=== PATIENT | male | born 1965 | race Two or more races ===

== ENCOUNTER 2016-12-13 10:12 | Inpatient (IN) | payer OTHER ==
[2016-12-13 10:24] VITALS: BMI 26.4
--- NOTE | 2016-12-13 13:36 | HP ---
CIWA Score - CIWA Score Nausea/Vomitin Muscle Tremors: 4-Moderate,w/Arms Extend Anxiety: 4-Mod. Anxious/Guarded Agitation: 3 Paroxysmal Sweats: 3 Orientation: 0-Oriented Tacttile Disturbances: 2-Mild Itch/Numbness/Burn Auditory Disturbances: 3-Moderate Harsh/Frighten Visual Disturbances: 0-None Headache: 2-Mild CIWA-Ar Total Score: 24 Admission ROS S - HPI Chief Complaint: "I am here to Detox and stop the drinking." Allergies/Adverse Reactions: Allergies Allergy/AdvReac Type Severity Reaction Status Date / Time No Known Allergies Allergy Verified 12/13/16 12:00 History of Present Illness: Pt. is a 51 YO male here to Detox from Alcohol. This is pt.'s first Detox admission at [facility]. Exam Limitations: No Limitations - Ebola screening Have you traveled outside of the country in the last 21 days: No Have you had contact with anyone from an Ebola affected area: No Have you been sick,other than usual withdrawal symptoms: No Do you have a fever: No - Review of Systems Constitutional: Chills, Diaphoresis, Fever, Loss of Appetite, Malaise, Night Sweats, Changes in sleep EENT: reports: Hearing Loss (Bilateral.), Other (Dentures for upper and lower teeth. Pt. only brought upper denture with him.) Respiratory: reports: SOB with Exertion (And when smoking.) Cardiac: reports: No Symptoms Reported GI: reports: Diarrhea, Nausea, Poor Appetite, Vomiting, Indigestion, Abdominal cramping : reports: No Symptoms Reported Musculoskeletal: reports: Back Pain, Joint Pain, Neck Pain, Joint Stiffness Integumentary: reports: Dryness, Pruritus (On back.) Neuro: reports: Headache, Seizure (Last One: 2002 (Alcohol-related).), Tremors Endocrine: reports: No Symptoms Reported Hematology: reports: No Symptoms Reported Psychiatric: reports: Judgement Intact, Mood/Affect Appropiate, Orientated x3, Anxious, Depressed (On meds.) Other Systems: Reviewed and Negative Patient History - Patient Medical History Hx Anemia: No Hx Asthma: Yes (On meds.) Hx Chronic Obstructive Pulmonary Disease (COPD): No Hx Cancer: No Hx Cardiac Disorders: No Hx Congestive Heart Failure: No Hx Hypertension: No Hx Hypercholesterolemia: No Hx Pacemaker: No HX Cerebrovascular Accident: Yes (Age 26, no apparent residual effect.) Hx Seizures: Yes (Last One: 2002 (Alcohol-related).) Hx Dementia: No Hx Diabetes: No Hx Gastrointestinal Disorders: No Hx Liver Disease: No Hx Genitourinary Disorders: No Hx Sexually Transmitted Disorders: No Hx Renal Disease (ESRD): No Hx Thyroid Disease: No Hx Human Immunodeficiency Virus (HIV): No (Last tested: 07/2016: NEGATIVE.) Hx Hepatitis C: No (Negative, Cannot rmember when last tested.) Hx Depression: Yes (On meds.) Hx Suicide Attempt: Yes (Several in past. PATIENT DENIES CURRENT SI / HI.) Hx Bipolar Disorder: No Hx Schizophrenia: Yes (On meds.) - Patient Surgical History Past Surgical History: No Hx Neurologic Surgery: No Hx Cataract Extraction: No Hx Cardiac Surgery: No Hx Lung Surgery: No Hx Breast Surgery: No Hx Breast Biopsy: No Hx Abdominal Surgery: No Hx Appendectomy: No Hx Cholecystectomy: No Hx Genitourinary Surgery: No Hx Orthopedic Surgery: No Anesthesia Reaction: No - PPD History Previous Implant?: Yes Documented Results: Negative w/o proof Implanted On Prior [facility] Admission?: No PPD to be Administered?: Yes - Reproductive History Patient is a Female of Child Bearing Age (11 -55 yrs old): No (PATIENT IS MALE.) - Smoking Cessation Smoking history: Current every day smoker Have you smoked in the past 12 months: Yes Aproximately how many cigarettes per day: 20 Cigars Per Day: 0 Hx Chewing Tobacco Use: No Initiated information on smoking cessation: Yes 'Breaking Loose' booklet given: 12/13/16 (GIVEN ON UNIT.) - Substance & Tx. History Hx Alcohol Use: Yes Hx Substance Use: Yes Substance Use Type: Alcohol, Tranquilizers Hx Substance Use Treatment: Yes (Detox at [facility] in past, Rehab at [facility].) - Substances Abused Alcohol Route: Oral Frequency: Daily Amount used: harshil 4 pints, beer 6 of 24 oz Age of first use: 10 Date of Last Use: 12/11/16 Benzodiazepine (Klonopin) Route: Oral Frequency: Daily Amount used: 2 MG (Prescribed) Age of first use: 48 Date of Last Use: 12/09/16 Family Disease History - Family Disease History Family Disease History: Diabetes: Grandparent, CA: Mother (Colon, Alive.), Other : Father (Schizophrenia, Alzheimer's, .), Sister (HIV.) Admission Physical Exam [facility] - Vital Signs Vital Signs: Vital Signs - 24 hr 12/13/16 10:15 Temperature 97.1 F L Pulse Rate 87 Respiratory 16 Rate Blood Pressure 112/73 - Physical General Appearance: Yes: No Apparent Distress, Nourished, Appropriately Dressed , Tremorous HEENTM: Yes: Hearing grossly Normal, Normocephalic, Normal Voice, JULISSA, Pharynx Normal Respiratory: Yes: Chest Non-Tender, No Respiratory Distress, Wheezing Neck: Yes: No masses,lesions,Nodules, Supple, Trachea in good position Breast: Yes: Breast Exam Deferred Cardiology: Yes: Regular Rhythm, Regular Rate, S1, S2 Abdominal: Yes: Normal Bowel Sounds, Non Tender, Soft, Protuberent Genitourinary: Yes: Within Normal Limits Back: Yes: Decreased Range of Motion Musculoskeletal: Yes: Gait Steady, Back pain Extremities: Yes: Tremors Neurological: Yes: Fully Oriented, Alert, Normal Mood/Affect, Normal Response Integumentary: Yes: Normal Color, Dry, Warm Lymphatic: Yes: Within Normal Limits - Diagnostic (1) Alcohol dependence with uncomplicated withdrawal Current Visit: Yes Status: Acute (2) Sedative, hypnotic or anxiolytic dependence with withdrawal, uncomplicated Current Visit: Yes Status: Acute (3) Nicotine dependence Current Visit: Yes Status: Chronic Qualifiers: Nicotine product type: cigarettes Substance use status: uncomplicated Qualified Code(s): F17.210 - Nicotine dependence, cigarettes, uncomplicated (4) Asthma Current Visit: Yes Status: Chronic Qualifiers: Asthma severity: mild persistent Asthma complication type: uncomplicated Qualified Code(s): J45.30 - Mild persistent asthma, uncomplicated (5) Bipolar disorder Current Visit: Yes Status: Chronic Qualifiers: Active/Remission status: remission status unspecified Qualified Code (s): F31.9 - Bipolar disorder, unspecified (6) Schizophrenia Current Visit: Yes Status: Chronic Qualifiers: Schizophrenia type: unspecified Qualified Code(s): F20.9 - Schizophrenia, unspecified Cleared for Admission [facility] - Detox or Rehab S Level of Care: Medically Managed Detox Regimen/Protocol: Librium S Breath Alcohol Content Breath Alcohol Content: 0 Urine Drug Screen - Results Drug Screen Negative: No Urine Drug Screen Results: BZO-Benzodiazepines
[2016-12-13] MEDS ORDERED: ACETAMINOPHEN 325 MG TABLET (FP) PO PRN (14:18)
[2016-12-13] MEDS ORDERED: MAGNESIUM HYDROX 2400MG/30ML ORAL SUSPENSION 30 ML CUP PO PRN (14:18)
[2016-12-13] MEDS ORDERED: MAG HYDROX/AL HYDROX/SIMETH 30 ML UNIT-DOSE CUP PO PRN (14:18)
[2016-12-13] MEDS ORDERED: MAGNESIUM CITRATE 300 ML BOTTLE PO PRN (14:18)
[2016-12-13] MEDS ORDERED: LOPERAMIDE HCL 2 MG CAPSULE PO PRN (14:18)
[2016-12-13] MEDS ORDERED: chlordiazePOXIDE HCL 25 MG CAPSULE PO PRN (14:18)
[2016-12-13] MEDS ORDERED: hydrOXYzine PAMOATE 50 MG CAPSULE (FP) PO PRN (14:18)
[2016-12-13] MEDS ORDERED: P-EPHED 60MG/TRIPROLIDI 2.5MG TABLET PO PRN (14:18)
[2016-12-13] MEDS ORDERED: MENTHOL/PHENOL 1 EACH UD MM PRN (14:18)
[2016-12-13] MEDS ORDERED: chlordiazePOXIDE HCL 25 MG CAPSULE PO ONE (14:18)
[2016-12-13] MEDS ORDERED: diphenhydrAMINE HCL 50 MG CAPSULE PO PRN (14:18)
[2016-12-13] MEDS ORDERED: guaiFENesin/D-METHORPHAN HB 10 ML UNIT-DOSE CUPS PO PRN (14:18)
[2016-12-13] MEDS ORDERED: NICOTINE POLACRILEX 2 MG GUM BC PRN (14:18)
[2016-12-13] MEDS ORDERED: IBUPROFEN 400 MG TABLET (FP) PO PRN (14:18)
[2016-12-13] MEDS ORDERED: ALBUTEROL SO4 6.7 GM HFA INHALER IH PRN (14:30)
[2016-12-13] MEDS: GABAPENTIN 400 MG CAPSULE (FP) PO SCH ×2 (15:00→22:24)
[2016-12-13] MEDS: NICOTINE 21 MG/24 HOURS TOPICAL PATCH TD SCH (15:08)
[2016-12-13] MEDS: chlordiazePOXIDE HCL 25 MG CAPSULE PO SCH ×2 (17:11→22:24)
--- NOTE | 2016-12-13 17:17 | EKG ---
Test Reason : Blood Pressure : / mmHG Vent. Rate : 076 BPM Atrial Rate : 076 BPM P-R Int : 142 ms QRS Dur : 088 ms QT Int : 400 ms P-R-T Axes : 081 049 041 degrees QTc Int : 450 ms NORMAL SINUS RHYTHM NORMAL ECG NO PREVIOUS ECGS AVAILABLE Confirmed by ROBE FLORENTINO MD ([id number]) on 12/13/2016 5:17:07 PM Referred By: Confirmed By:ROBE FLORENTINO MD
[2016-12-13 20:06] LABS: URINE APPEARANCE CLEAR; URINE BILIRUBIN NEGATIVE (NEGATIVE); URINE BLOOD NEGATIVE (NEGATIVE); URINE COLOR DKYELLOW; URINE GLUCOSE (UA) NEGATIVE (NEGATIVE); URINE KETONE TRACE (NEGATIVE); URINE LEUK ESTERASE NEGATIVE (NEGATIVE); URINE NITRITE NEGATIVE (NEGATIVE); URINE PROTEIN NEGATIVE (NEGATIVE); URINE UROBILINOGEN 2.0 E.U/dl E.U./dl (0.2-1.0)
[2016-12-13] MEDS: THIAMINE HCL 100 MG TABLET (FP) PO SCH (22:23)
[2016-12-13] MEDS: BUDESONIDE/FORMETEROL FUMARATE 80/4.5 mcg INHALER IH SCH (22:24)
[2016-12-13] MEDS: CYCLOBENZAPRINE HCL 10 MG TABLET (FP) PO SCH (22:24)
[2016-12-13] MEDS: NAPROXEN 500 MG TABLET (FP) PO SCH (22:24)
[2016-12-13] MEDS: AMMONIUM LACTATE 12% LOTION 225 GM BOTTLE TP SCH (22:25)
[2016-12-14] MEDS: GABAPENTIN 400 MG CAPSULE (FP) PO SCH ×3 (05:51→22:35)
[2016-12-14] MEDS: chlordiazePOXIDE HCL 25 MG CAPSULE PO SCH ×4 (05:51→22:34)
--- NOTE | 2016-12-14 10:00 | CONSULT ---
[facility] Psychiatric Consult - Data Date of interview: 12/14/16 Admission source: [facility] Identifying data: This is 51 years old male with history of Bipolar disorder, Schizophrenia, history of psychiatric hospitalization, intoxicated with: Alcohol, Xanax, Nicotine Substance Abuse History: Smoking history: Current every day smoker. Have you smoked in the past 12 months: Yes. Aproximately how many cigarettes per day: 20. Cigars Per Day: 0. Hx Chewing Tobacco Use: No. Initiated information on smoking cessation: Yes. 'Breaking Loose' booklet given: 12/13/16 (GIVEN ON UNIT.). - Substance & Tx. History. Hx Alcohol Use: Yes. Hx Substance Use: Yes. Substance Use Type: Alcohol, Tranquilizers. Hx Substance Use Treatment: Yes (Detox at [facility] in past, Rehab at [facility] - Substances Abused. Alcohol. Route: Oral. Frequency: Daily. Amount used: harshil 4 pints, beer 6 of 24 oz. Age of first use: 10. Date of Last Use: 12/11/16. Benzodiazepine (Klonopin). Route: Oral. Frequency: Daily. Amount used: 2 MG ( Prescribed). Age of first use: 48. Date of Last Use: 12/09/16 Medical History: Denies, unknown Psychiatric History: Ramonat reports history of Bipolar disorder with recent psychiatric admission on 2015 at [facility] due to psychiatic episode. Patioent reports taking prior to admission: Trazodone 100mg po qhs. Ambien 10mg po qhs. Gabapentin 800mg po tid Physical/Sexual Abuse/Trauma History: Denies Additional Comment: Trazodone 100mg po qhs. Ambien 10mg po qhs. Gabapentin 800mg po tid Mental Status Exam - Mental Status Exam Alert and Oriented to: Person Cognitive Function: Fair Patient Appearance: Unkempt Mood: Sad Affect: Flat Patient Behavior: Sedated Speech Pattern: Delayed Voice Loudness: Mildly Soft/Quiet Thought Process: Circumstantial Thought Disorder: Being Controlled Hallucinations: Denies Suicidal Ideation: Denies Homicidal Ideation: Denies Insight/Judgement: Fair Sleep: Difficulty falling asleep Appetite: Fair Muscle strength/Tone: Mild Hypotonicity Gait/Station: Shuffling Additional Comments: Trazodone 100mg po qhs. Ambien 10mg po qhs. Gabapentin 800mg po tid Psychiatric Findings - Problem List ([place] 1, 2,3) (1) Alcohol dependence with uncomplicated withdrawal Current Visit: Yes Status: Acute (2) Sedative, hypnotic or anxiolytic dependence with withdrawal, uncomplicated Current Visit: Yes Status: Acute (3) Bipolar disorder Current Visit: Yes Status: Chronic Qualifiers: Active/Remission status: remission status unspecified Qualified Code (s): F31.9 - Bipolar disorder, unspecified (4) Nicotine dependence Current Visit: Yes Status: Chronic Qualifiers: Nicotine product type: cigarettes Substance use status: uncomplicated Qualified Code(s): F17.210 - Nicotine dependence, cigarettes, uncomplicated (5) Schizophrenia Current Visit: Yes Status: Chronic Qualifiers: Schizophrenia type: unspecified Qualified Code(s): F20.9 - Schizophrenia, unspecified - Initial Treatment Plan Initial Treatment Plan: Trazodone 100mg po qhs. Ambien 10mg po qhs. Gabapentin 800mg po tid
[2016-12-14 10:02] LABS: MCH 32.9 pg (25.7-33.7); MCHC 33.5 g/dl (32.0-35.9); MEAN CELL VOLUME 98.1 fl (80-96); PLATELET COUNT 158 K/MM3 (134-434); RDW 13.8 % (11.9-15.9)
--- NOTE | 2016-12-14 10:29 | PN ---
S CIWA - CIWA Score Nausea/Vomitin-No Nausea/No Vomiting Muscle Tremors: 4-Moderate,w/Arms Extend Anxiety: 3 Agitation: 4-Moderately Restless Paroxysmal Sweats: 3 Orientation: 0-Oriented Tacttile Disturbances: 0-None Auditory Disturbances: 0-None Visual Disturbances: 0-None Headache: 0-None Present CIWA-Ar Total Score: 14 [facility] Progress Note (SOAP) Subjective: Anxiety,tremors,sweating,interrupted sleep,restless Objective: 12/14/16 10:27 Vital Signs - 8 hr 12/14/16 12/14/16 07:01 10:04 Temperature 97.7 F 96.3 F L Pulse Rate 72 84 Respiratory 18 2 L Rate Blood Pressure 111/82 115/76 Laboratory Tests 12/13/16 12/14/16 12/14/16 19:53 08:00 08:00 WBC 7.0 RBC 4.46 Hgb 14.7 Hct 43.7 MCV 98.1 H MCHC 33.5 RDW 13.8 Plt Count 158 MPV 9.0 Sodium 140 Potassium 3.6 Chloride 103 Urine Color Dkyellow Urine Appearance Clear Urine pH 6.0 Ur Specific [place] 1.019 Urine Protein Negative Urine Glucose (UA) Negative Urine Ketones Trace H Urine Blood Negative Urine Nitrite Negative Urine Bilirubin Negative Urine Urobilinogen 2.0 e.u/dl Ur Leukocyte Esterase Negative labs noted Assessment: 12/14/16 10:27 Withdrawal sx. Plan: Continue detox
[2016-12-14 10:42] LABS: ALBUMIN 3.5 g/dl (3.4-5.0); ALK PHOS 97 U/L (45-117); ANION GAP 10 (8-16); BILIRUBIN,TOTAL 0.5 mg/dL (0.2-1.0); CALCIUM 8.7 mg/dL (8.5-10.1); CO2 27 mmol/L (21-32); CREATININE 0.8 mg/dL (0.7-1.3); GLUCOSE,RANDOM 96 mg/dL (74-106); SGOT/AST 15 U/L (15-37); SGPT/ALT 16 U/L (12-78); TOT PROT 6.2 g/dl (6.4-8.2)
[2016-12-14] MEDS: BUDESONIDE/FORMETEROL FUMARATE 80/4.5 mcg INHALER IH SCH ×2 (10:53→22:34)
[2016-12-14] MEDS: PRENATAL VITAMINS W/ FOLIC ACID TABLET (FP) PO SCH (10:54)
[2016-12-14] MEDS: CYCLOBENZAPRINE HCL 10 MG TABLET (FP) PO SCH ×2 (10:54→22:35)
[2016-12-14] MEDS: AMMONIUM LACTATE 12% LOTION 225 GM BOTTLE TP SCH ×2 (10:54→22:52)
[2016-12-14] MEDS: NAPROXEN 500 MG TABLET (FP) PO SCH ×2 (10:54→22:34)
[2016-12-14] MEDS: NICOTINE 21 MG/24 HOURS TOPICAL PATCH TD SCH (10:55)
[2016-12-14 11:49] LABS: HIV 1 & 2 AB NEGATIVE; HIV 1 AGp24 NEGATIVE
[2016-12-14] MEDS: ZOLPIDEM TARTRATE 10 MG TABLET (PARK CARE ONLY) PO PRN (22:34)
[2016-12-14] MEDS: THIAMINE HCL 100 MG TABLET (FP) PO SCH (22:34)
[2016-12-14] MEDS: traZODone HCL 100 MG TABLET (FP) PO SCH (22:35)
[2016-12-15] MEDS: chlordiazePOXIDE HCL 25 MG CAPSULE PO SCH ×2 (05:48→10:44)
[2016-12-15] MEDS: AMMONIUM LACTATE 12% LOTION 225 GM BOTTLE TP SCH ×2 (10:00→23:00)
[2016-12-15] MEDS: BUDESONIDE/FORMETEROL FUMARATE 80/4.5 mcg INHALER IH SCH ×2 (10:30→23:00)
[2016-12-15] MEDS: PRENATAL VITAMINS W/ FOLIC ACID TABLET (FP) PO SCH (10:42)
[2016-12-15] MEDS: NICOTINE 21 MG/24 HOURS TOPICAL PATCH TD SCH (10:42)
[2016-12-15] MEDS: GABAPENTIN 400 MG CAPSULE (FP) PO SCH ×2 (10:42→23:01)
[2016-12-15] MEDS: NAPROXEN 500 MG TABLET (FP) PO SCH ×2 (10:42→23:00)
[2016-12-15] MEDS: CYCLOBENZAPRINE HCL 10 MG TABLET (FP) PO SCH ×2 (10:42→23:01)
--- NOTE | 2016-12-15 11:26 | PN ---
[facility] CIWA - CIWA Score Nausea/Vomitin-No Nausea/No Vomiting Muscle Tremors: 4-Moderate,w/Arms Extend Anxiety: 4-Mod. Anxious/Guarded Agitation: 4-Moderately Restless Paroxysmal Sweats: 1-Minimal Palms Moist Orientation: 0-Oriented Tacttile Disturbances: 3-Moderate Itch/Numb/Burn Auditory Disturbances: 0-None Visual Disturbances: 0-None Headache: 0-None Present CIWA-Ar Total Score: 16 [facility] Progress Note (SOAP) Subjective: ANXIETY,SWEATS,FATIGUE. Objective: 12/15/16 11:25 Vital Signs Temperature 96.4 F L 12/15/16 10:26 Pulse Rate 80 12/15/16 10:26 Respiratory Rate 18 12/15/16 10:26 Blood Pressure 111/73 12/15/16 10:26 O2 Sat by Pulse Oximetry (%) Laboratory Last Values WBC 7.0 K/mm3 (4.0-10.0) 12/14/16 08:00 RBC 4.46 M/mm3 (4.00-5.60) 12/14/16 08:00 Hgb 14.7 GM/dL (11.7-16.9) 12/14/16 08:00 Hct 43.7 % (35.4-49) 12/14/16 08:00 MCV 98.1 fl (80-96) H 12/14/16 08:00 MCHC 33.5 g/dl (32.0-35.9) 12/14/16 08:00 RDW 13.8 % (11.9-15.9) 12/14/16 08:00 Plt Count 158 K/MM3 (134-434) 12/14/16 08:00 MPV 9.0 fl (7.5-11.1) 12/14/16 08:00 Sickle Cell Screen Negative (NEGATIVE) 12/14/16 08:00 Sodium 140 mmol/L (136-145) 12/14/16 08:00 Potassium 3.6 mmol/L (3.5-5.1) 12/14/16 08:00 Chloride 103 mmol/L (98-107) 12/14/16 08:00 Carbon Dioxide 27 mmol/L (21-32) 12/14/16 08:00 Anion Gap 10 (8-16) 12/14/16 08:00 BUN 12 mg/dL (7-18) 12/14/16 08:00 Creatinine 0.8 mg/dL (0.7-1.3) 12/14/16 08:00 Creat Clearance w eGFR > 60 (>60) 12/14/16 08:00 Random Glucose 96 mg/dL (74-106) 12/14/16 08:00 Calcium 8.7 mg/dL (8.5-10.1) 12/14/16 08:00 Total Bilirubin 0.5 mg/dL (0.2-1.0) 12/14/16 08:00 AST 15 U/L (15-37) 12/14/16 08:00 ALT 16 U/L (12-78) 12/14/16 08:00 Alkaline Phosphatase 97 U/L (45-117) 12/14/16 08:00 Total Protein 6.2 g/dl (6.4-8.2) L 12/14/16 08:00 Albumin 3.5 g/dl (3.4-5.0) 12/14/16 08:00 Urine Color Dkyellow 12/13/16 19:53 Urine Appearance Clear 12/13/16 19:53 Urine pH 6.0 (5.0-8.0) 12/13/16 19:53 Ur Specific [place] 1.019 (1.001-1.035) 12/13/16 19:53 Urine Protein Negative (NEGATIVE) 12/13/16 19:53 Urine Glucose (UA) Negative (NEGATIVE) 12/13/16 19:53 Urine Ketones Trace (NEGATIVE) H 12/13/16 19:53 Urine Blood Negative (NEGATIVE) 12/13/16 19:53 Urine Nitrite Negative (NEGATIVE) 12/13/16 19:53 Urine Bilirubin Negative (NEGATIVE) 12/13/16 19:53 Urine Urobilinogen 2.0 e.u/dl E.U./dl (0.2-1.0) 12/13/16 19:53 Ur Leukocyte Esterase Negative (NEGATIVE) 12/13/16 19:53 RPR Titer Nonreactive (NONREACTIVE) 12/14/16 08:00 HIV 1&2 Antibody Screen Negative 12/14/16 08:00 HIV P24 Antigen Negative 12/14/16 08:00 Assessment: 12/15/16 11:25 WITHDRAWALS SX Plan: CONTINUE DETOX
[2016-12-15] MEDS: chlordiazePOXIDE 5 MG CAPSULE PO SCH ×2 (17:11→23:33)
[2016-12-15] MEDS: THIAMINE HCL 100 MG TABLET (FP) PO SCH (23:00)
[2016-12-15] MEDS: traZODone HCL 100 MG TABLET (FP) PO SCH (23:05)
[2016-12-16] MEDS: chlordiazePOXIDE 5 MG CAPSULE PO SCH ×2 (05:52→10:45)
[2016-12-16] MEDS: NAPROXEN 500 MG TABLET (FP) PO SCH ×2 (10:44→22:52)
[2016-12-16] MEDS: GABAPENTIN 400 MG CAPSULE (FP) PO SCH ×2 (10:44→22:52)
[2016-12-16] MEDS: CYCLOBENZAPRINE HCL 10 MG TABLET (FP) PO SCH ×2 (10:44→22:52)
[2016-12-16] MEDS: AMMONIUM LACTATE 12% LOTION 225 GM BOTTLE TP SCH ×2 (10:44→22:52)
[2016-12-16] MEDS: PRENATAL VITAMINS W/ FOLIC ACID TABLET (FP) PO SCH (10:45)
[2016-12-16] MEDS: BUDESONIDE/FORMETEROL FUMARATE 80/4.5 mcg INHALER IH SCH ×2 (10:45→23:10)
[2016-12-16] MEDS: NICOTINE 21 MG/24 HOURS TOPICAL PATCH TD SCH (10:47)
--- NOTE | 2016-12-16 12:18 | PN ---
[facility] Progress Note (SOAP) Subjective: ANXIETY,SWEATS,IRRITABILITY. Objective: 12/16/16 12:18 Vital Signs Temperature 97.1 F L 12/16/16 10:24 Pulse Rate 80 12/16/16 10:24 Respiratory Rate 18 12/16/16 10:24 Blood Pressure 129/86 12/16/16 10:24 O2 Sat by Pulse Oximetry (%) Assessment: 12/16/16 12:18 WITHDRAWAL SX Plan: CONTINUE DETOX
[2016-12-16] MEDS: chlordiazePOXIDE HCL 10 MG CAPSULE PO SCH ×2 (17:12→22:52)
[2016-12-16] MEDS ORDERED: NICOTINE 21 MG/24 HOURS TOPICAL PATCH TD SCH (19:00)
[2016-12-16] MEDS: THIAMINE HCL 100 MG TABLET (FP) PO SCH (22:51)
[2016-12-16] MEDS: traZODone HCL 100 MG TABLET (FP) PO SCH (22:52)
[2016-12-16] MEDS: ZOLPIDEM TARTRATE 10 MG TABLET (PARK CARE ONLY) PO PRN (22:55)
[2016-12-17] MEDS: chlordiazePOXIDE HCL 10 MG CAPSULE PO SCH (05:25)
[2016-12-17 09:28] VITALS: BP 109/82; PULSE 82; TEMP 95.1
--- NOTE | 2016-12-17 10:58 | DS ---
[facility] Detox Discharge Summary Admission Date: 12/13/16 Discharge Date: 12/17/16 - History Present History: Alcohol Dependence, Sedative Dependence Additional Comments: DETOX COMPLETED.ALERT O X 3. NAD. Pertinent Past History: SEIZURES ASTHMA S/P CVA WITH NO RESIDUAL DEFICIT BIPOLAR DISORDER SCHIZOPHRENIA - Physical Exam Results Vital Signs: Vital Signs Temperature 95.1 F L 12/17/16 09:28 Pulse Rate 82 12/17/16 09:28 Respiratory Rate 18 12/17/16 09:28 Blood Pressure 109/82 12/17/16 09:28 O2 Sat by Pulse Oximetry (%) Pertinent Admission Physical Exam Findings: WITHDRAWAL SX Laboratory Last Values WBC 7.0 K/mm3 (4.0-10.0) 12/14/16 08:00 RBC 4.46 M/mm3 (4.00-5.60) 12/14/16 08:00 Hgb 14.7 GM/dL (11.7-16.9) 12/14/16 08:00 Hct 43.7 % (35.4-49) 12/14/16 08:00 MCV 98.1 fl (80-96) H 12/14/16 08:00 MCHC 33.5 g/dl (32.0-35.9) 12/14/16 08:00 RDW 13.8 % (11.9-15.9) 12/14/16 08:00 Plt Count 158 K/MM3 (134-434) 12/14/16 08:00 MPV 9.0 fl (7.5-11.1) 12/14/16 08:00 Sickle Cell Screen Negative (NEGATIVE) 12/14/16 08:00 Sodium 140 mmol/L (136-145) 12/14/16 08:00 Potassium 3.6 mmol/L (3.5-5.1) 12/14/16 08:00 Chloride 103 mmol/L (98-107) 12/14/16 08:00 Carbon Dioxide 27 mmol/L (21-32) 12/14/16 08:00 Anion Gap 10 (8-16) 12/14/16 08:00 BUN 12 mg/dL (7-18) 12/14/16 08:00 Creatinine 0.8 mg/dL (0.7-1.3) 12/14/16 08:00 Creat Clearance w eGFR > 60 (>60) 12/14/16 08:00 Random Glucose 96 mg/dL (74-106) 12/14/16 08:00 Calcium 8.7 mg/dL (8.5-10.1) 12/14/16 08:00 Total Bilirubin 0.5 mg/dL (0.2-1.0) 12/14/16 08:00 AST 15 U/L (15-37) 12/14/16 08:00 ALT 16 U/L (12-78) 12/14/16 08:00 Alkaline Phosphatase 97 U/L (45-117) 12/14/16 08:00 Total Protein 6.2 g/dl (6.4-8.2) L 12/14/16 08:00 Albumin 3.5 g/dl (3.4-5.0) 12/14/16 08:00 Urine Color Dkyellow 12/13/16 19:53 Urine Appearance Clear 12/13/16 19:53 Urine pH 6.0 (5.0-8.0) 12/13/16 19:53 Ur Specific [place] 1.019 (1.001-1.035) 12/13/16 19:53 Urine Protein Negative (NEGATIVE) 12/13/16 19:53 Urine Glucose (UA) Negative (NEGATIVE) 12/13/16 19:53 Urine Ketones Trace (NEGATIVE) H 12/13/16 19:53 Urine Blood Negative (NEGATIVE) 12/13/16 19:53 Urine Nitrite Negative (NEGATIVE) 12/13/16 19:53 Urine Bilirubin Negative (NEGATIVE) 12/13/16 19:53 Urine Urobilinogen 2.0 e.u/dl E.U./dl (0.2-1.0) 12/13/16 19:53 Ur Leukocyte Esterase Negative (NEGATIVE) 12/13/16 19:53 RPR Titer Nonreactive (NONREACTIVE) 12/14/16 08:00 Hepatitis C Antibody <0.1 s/co ratio (0.0-0.9) 12/14/16 08:00 HIV 1&2 Antibody Screen Negative 12/14/16 08:00 HIV P24 Antigen Negative 12/14/16 08:00 - Treatment Hospital Course: Detox Protocol Followed, Detoxed Safely, Responded well, Discharged Condition Good - Medication Discharge Medications: Ambulatory Orders Albuterol Sulfate Inhaler - [Ventolin HFA Inhaler -] 1 puff IN PRN 12/13/16 Ammonium Lactate Cream [Lac-Hydrin 12% *Cream*] 1 applic TP DAILY 12/13/16 Budesonide/Formeterol Fumarate [SYMBICORT 80/4.5mcg -] 1 inhaler PO BID Clonazepam [Klonopin] 1 mg PO BID 12/13/16 Gabapentin 800 mg PO TID 12/13/16 Lurasidone HCl [Latuda] 120 mg PO DAILY 12/13/16 Naproxen [Naprosyn -] 500 mg PO BID 12/13/16 Tizanidine HCl [Zanaflex] 4 mg PO BID 12/13/16 Trazodone HCl [Desyrel -] 150 mg PO HS 12/13/16 Varenicline Tartrate [Chantix] 1 mg PO BID 12/13/16 Zolpidem Tartrate [Ambien] 10 mg PO HS 12/13/16 Duloxetine HCl [Cymbalta] 20 mg PO DAILY #30 capsule. 12/14/16 Gabapentin 800 mg PO TID #90 tablet 12/14/16 Gabapentin [Neurontin [DO NOT STOCK]] 800 mg PO TID #90 tablet 12/14/16 Lurasidone HCl [Latuda -] 20 mg PO DAILY #30 tablet 12/14/16 Lurasidone HCl [Latuda] 20 mg PO DAILY #30 tablet 12/14/16 Mirtazapine [Remeron [DO NOT STOCK]] 45 mg PO HS #30 tab 12/14/16 Quetiapine Fumarate [Seroquel -] 200 mg PO HS #30 tab 12/14/16 Trazodone HCl 100 mg PO HS #30 tablet 12/14/16 Trazodone HCl 100 mg PO HS #30 tablet 12/14/16 Zolpidem Tartrate [Ambien] 0 mg PO HS #14 tablet MDD 10 12/14/16 Zolpidem Tartrate [Ambien] 10 mg GT HS #14 tablet MDD 10 12/14/16 Zolpidem Tartrate [Ambien] 10 mg GT HS #14 tablet MDD 10 12/14/16 Zolpidem Tartrate [Ambien] 10 mg PO HS #14 tablet MDD 10 12/14/16 - Diagnosis (1) Alcohol dependence with uncomplicated withdrawal Current Visit: Yes Status: Acute (2) Sedative, hypnotic or anxiolytic dependence with withdrawal, uncomplicated Current Visit: Yes Status: Acute (3) Asthma Current Visit: Yes Status: Chronic Qualifiers: Asthma severity: mild persistent Asthma complication type: uncomplicated Qualified Code(s): J45.30 - Mild persistent asthma, uncomplicated (4) Nicotine dependence Current Visit: Yes Status: Chronic Qualifiers: Nicotine product type: cigarettes Substance use status: uncomplicated Qualified Code(s): F17.210 - Nicotine dependence, cigarettes, uncomplicated (5) Bipolar disorder Current Visit: Yes Status: Chronic Qualifiers: Active/Remission status: remission status unspecified Qualified Code (s): F31.9 - Bipolar disorder, unspecified (6) Schizophrenia Current Visit: Yes Status: Chronic Qualifiers: Schizophrenia type: unspecified Qualified Code(s): F20.9 - Schizophrenia, unspecified - AMA Did Patient Leave Against Medical Advice: No
== END 2016-12-17 09:16 | disposition home or self-care (01) | DRG 775 ==
LOC: YASAS 10:12 → Y3N 12:41
PROVIDERS: ADMIT Internal Medicine; ATTEND Internal Medicine
PROC: HZ2ZZZZ Detoxification Services for Substance Abuse Treatment (ICD-10-PCS; principal; 2016-12-17)
DX: F13.230 Sedative, hypnotic or anxiolytic dependence with withdrawal, uncomplicated (principal); F10.230 Alcohol dependence with withdrawal, uncomplicated; F17.210 Nicotine dependence, cigarettes, uncomplicated; F31.9 Bipolar disorder, unspecified; F20.9 Schizophrenia, unspecified; J45.30 Mild persistent asthma, uncomplicated
CPT/HCPCS: 36415; 80053; 81003; 85027; 85660; 86593; 87389; 93005; 93010